=== PATIENT | male | born 1965 | race Caucasian/White ===

== ENCOUNTER 2021-05-21 12:56 | Inpatient (IN) | payer OTHER, SELFPAY ==
[2021-05-21] VITALS (15 sets, daily range): BP systolic 103–151; BP diastolic 57–82; PULSE 85–105; RESP 21–33; TEMP 36.2–36.8; O2SAT 92–99; BMI 28.1; BMI 26.3
--- NOTE | 2021-05-21 14:55 | RAD_ITS ---
STUDY: X-RAY CHEST REASON FOR EXAM: Male, 55 years old. sob/covid -- in ed waiting room TECHNIQUE: Single AP portable view of the chest. COMPARISON: None. FINDINGS: EKG electrodes are seen. Mild degree of bibasilar pulmonary infiltrates slightly worse on the left side. There is no demonstrated pleural abnormality. Normal size heart. Normal mediastinum and elma. Normal visualized pulmonary arteries. Normal visualized aortic arch and descending thoracic aorta. Normal visualized thoracic spine. Normal visualized ribs, clavicles, and shoulders. There is no demonstrated abnormality of the visualized soft tissue structures of the upper abdomen. RAD/Chest 1 View (Portable) IMPRESSION: Mild degree of bilateral basilar infiltrates worse at the left lung base. Electronically Signed: Jose David Valdez MD at 15:15 EDT , Service support ,
--- NOTE | 2021-05-21 15:26 | EKG12_ITS ---
Test Reason : SOB Blood Pressure : / mmHG Vent. Rate : 085 BPM Atrial Rate : 085 BPM P-R Int : 154 ms QRS Dur : 084 ms QT Int : 346 ms P-R-T Axes : 066 -01 060 degrees QTc Int : 411 ms Normal sinus rhythm Poor R wave progression Confirmed by OLIVA ABBOTT, SOFIA ([id number]), slot editor BLAINE BANDA ([id number]) on 05/23/2021 11:25:40 AM Referred By: KAVITHA Confirmed By:SOFIA BAPTISTE MD
--- NOTE | 2021-05-21 15:58 | EDS_ITS ---
HPI History of Present Illness Chief Complaint: Shortness of Breath Informant: patient Onset/Context/Timing Onset: Weeks (1) Context: gradual Timing: Continuous Worsened by: - (Drinking water and drinking coffee) Relieved by: Nothing Associated Symptoms cough; Negative for rhinorrhea, ear pain, fever, sore throat, subjective, chil ls, sweats, clear sputum, white sputum, yellow sputum or green sputum Chest Pain: Positive for None Narrative Narrative: Patient with shortness of breath that has been getting worse over the past week. Patient admits to a cough but denies any sputum production. Patient states his breathing is worse after he drinks water or coffee. Patient states nothing seems to be helping with his breathing. Patient denies any fevers or chills. Patient apparently had a positive COVID-19 test 1 week ago. Patient states he is unable to return to work if he has a positive Covid test. [facility] Medical History (Updated 05/21/21 @ 17:[address] Kiel Diego DO) Diabetes Hyperlipidemia Hypertension Home Medications albuterol sulfate 1 - 2 puff INHALATION Q4H PRN 05/21/21 [History Last Taken Unknown] lisinopril 10 mg PO DAILY 05/21/21 [History Last Taken Unknown] metformin 1,000 mg PO BID 05/21/21 [History Last Taken Unknown] pravastatin 20 mg PO DAILY 05/21/21 [History Last Taken Unknown] prednisone See Taper PO DAILY 05/21/21 [History Last Taken Unknown] Allergy/AdvReac Type Severity Reaction Status Date / Time No Known Allergies Allergy Verified 05/21/21 13:00 Surgical History (Updated 05/21/21 @ 16:[address] Kiel Diego DO) Hx of knee surgery Social History Smoking Status: Never smoker ROS ROS ED Constitutional Constitutional ED: Denies chills or fever(s) Eyes Eyes: Denies blurry vision or change in vision ENT ENT ED: Denies rhinorrhea or sore throat Cardiovascular Cardiovascular: Denies chest pain or palpitations Respiratory/Chest Respiratory/Chest: Reports cough and dyspnea Gastrointestinal Gastrointestinal: Denies nausea or vomiting Genitourinary Genitourinary ED: Denies dysuria or hematuria Musculoskeletal Musculoskeletal: Denies back pain or neck pain Integumentary Denies abscess or rash Neurologic Neurologic: Denies headache(s) or weakness Allergic/Immunologic Allergic/Immunologic ED: Denies mouth swelling or urticaria EXAM Physical Exam Const Vital Signs: 05/21/21 12:57 05/21/21 14:54 05/21/21 15:27 Temperature 97.2 F L Temperature Source Temporal Pulse Rate 96 95 Respiratory Rate 24 H 29 H 32 H Respiratory Effort Short of Breath Respiratory Pattern Tachypnea Blood Pressure 145/68 H 144/82 H Blood Pressure Mean 93 102 Pulse Ox 94 94 98 Oxygen Delivery Method Room Air Room Air Room Air 05/21/21 15:35 05/21/21 16:28 Temperature Temperature Source Pulse Rate 85 105 H Respiratory Rate 33 H 30 H Respiratory Effort Respiratory Pattern Blood Pressure 133/76 H 129/80 H Blood Pressure Mean 95 96 Pulse Ox 95 97 Oxygen Delivery Method Room Air Room Air Positive well nourished and well developed General Appearance ED: well developed HEENT Reports moist mucous membranes Neck supple and no JVD Resp normal respiratory effort Auscultation: diminished lung sounds diffuse Cardio regular rate, regular rhythm and no murmurs GI normal to inspection, nondistended, normoactive bowel sounds and non-tender Palpation: soft Extremity normal to inspection General Extremety ED: Negative for edema or tenderness General Extremity: Negative for edema Neuro oriented x3, CN's II-XII intact bilaterally and no sensory deficits noted Sensorium / Orientation: alert Motor Exam: strength 5/5 throughout Psych mental status grossly normal Skin no rashes or lesions noted MDM MDM MDM Narrative Medical decision making narrative: Patient was given IV fluids here. Patient was given 6 puffs of an albuterol inhaler. Patient was given Tylenol. EKG was obtained. On my interpretation, it showed a normal sinus rhythm with a rate of 85. IA interval, QRS interval, and QTc intervals were all normal. [place] was normal. There are no acute ST or T wave changes. Portable chest x-ray was obtained. There is 1 view. On my interpretation, there are bibasilar infiltrates, worse on the left. There is no cardiomegaly. Bony thorax is normal. Radiologist also interpreted the x-ray and agrees. CBC shows a mild leukocytosis of 12.2. Comprehensive metabolic profile shows a sodium of 129, potassium of 5.9, chloride 91, CO2 of 13, anion gap of 25, BUN of 46, and creatinine of 1.44. There are no prior results for comparison. Glucose was elevated at 555. Lactate was slightly elevated at 2.1. There are moderate ketones. Patient was started on insulin drip here. Case was discussed with the hospitalist. She will admit the patient to ICU. Patient understood and was agreeable with the plan. All questions were answered. Lab Data Attestation: I reviewed the patient's lab results. Labs: Laboratory Results - last 24 hr 05/21/21 05/21/21 05/21/21 15:20 15:20 15:20 WBC 12.2 H RBC 4.54 L Hgb 12.6 L Hct 37.6 L MCV 82.8 MCH 27.8 MCHC 33.5 RDW Std Deviation 41.2 RDW Coeff of Josue 13.7 Plt Count 313 MPV 10.6 Immature Gran % (Auto) 1.500 H Neut % (Auto) 79.5 H Lymph % (Auto) 9.9 L [place] % (Auto) 8.9 Eos % (Auto) 0.0 Baso % (Auto) 0.2 Absolute Neuts (auto) 9.7 H Absolute Lymphs (auto) 1.21 Nucleated RBC % 0 Differential Comment SCANNED Sodium 129 L Potassium 5.9 H Chloride 91 L Carbon Dioxide 13.0 L Anion Gap 25 H BUN 46 H Creatinine 1.44 H Estim Creat Clear Calc 56.74 Est GFR (MDRD) Af Amer 66 Est GFR (MDRD) Non-Af 54 L BUN/Creatinine Ratio 31.9 H Glucose 555 H* Lactic Acid 2.1 H* Calcium 10.7 H Total Bilirubin 0.80 AST 18 ALT 26 Alkaline Phosphatase 75 Troponin I High Sens 6 Total Protein 8.7 H Albumin 3.2 Globulin 5.5 H Albumin/Globulin Ratio 0.6 L Acetone Level 05/21/21 15:20 WBC RBC Hgb Hct MCV MCH MCHC RDW Std Deviation RDW Coeff of Josue Plt Count MPV Immature Gran % (Auto) Neut % (Auto) Lymph % (Auto) [place] % (Auto) Eos % (Auto) Baso % (Auto) Absolute Neuts (auto) Absolute Lymphs (auto) Nucleated RBC % Differential Comment Sodium Potassium Chloride Carbon Dioxide Anion Gap BUN Creatinine Estim Creat Clear Calc Est GFR (MDRD) Af Amer Est GFR (MDRD) Non-Af BUN/Creatinine Ratio Glucose Lactic Acid Calcium Total Bilirubin AST ALT Alkaline Phosphatase Troponin I High Sens Total Protein Albumin Globulin Albumin/Globulin Ratio Acetone Level MODERATE H Radiography Chest X-Ray - ED: 1 View, Read by ED Physician, Read by Radiologist, Right Infiltrate and Left Infiltrate Diagnostic Testing: Radiology Impression Chest X-Ray 05/21/21 14:55 IMPRESSION: Mild degree of bilateral basilar infiltrates worse at the left lung base. Electronically Signed: Jose David Valdez MD at 15:15 EDT , Service support , EKG Initial EKG: Attestation: I personally reviewed and interpreted this EKG as follows: Interpretation: Sinus Rhythm (85) and No Acute Injury Pattern Prior EKG tracings: not available for review Treatment and Re-Evaluation Vital Sign Attestation:: Vital signs were reviewed prior to admission. Patient still has a tachypnea. Remaining vital signs are stable. Discharge Plan Triage Chief Complaint: Shortness of Breath ED Provider: Kiel Diego Dx/Rx/DC Orders Clinical Impression: Diabetic ketoacidosis, Pneumonia due to COVID-19 virus Prescriptions: No Action prednisone 10 mg tablet See Taper mg PO DAILY RF: 0 lisinopril 10 mg tablet 10 mg PO DAILY RF: 0 pravastatin 20 mg tablet 20 mg PO DAILY RF: 0 albuterol sulfate 90 mcg/actuation HFA aerosol inhaler 1 - 2 puff INHALATION Q4H PRN (Reason: sob) RF: 0 metformin 500 mg tablet extended release 24 hr 1,000 mg PO BID RF: 0 Primary Care Provider: Suresh Ball Referrals: Suresh Ball MD [Primary Care Provider] - Disposition Disposition: Acute Care Hospital [facility]
[2021-05-21] MEDS: Acetaminophen 500 MG Tablet 1000 MG PO (16:06)
[2021-05-21 16:08] LABS: Absolute Lymphocyte Count 1.21 X10^3/uL (0.83-4.51); Absolute Neutrophil Count 9.7 X10^3/uL (2.0-7.7); Basophil# 0.03 X10^3/uL; Basophil% 0.2 % (0-1); Hematocrit 37.6 % (40-54); Hemoglobin 12.6 g/dL (13.0-16.5); Lymphocyte # 1.21 X10^3/ul (0.83-4.51); Lymphocyte % 9.9 % (19-41); Mean Corp Hgb Conc 33.5 g/dL (32-36); Mean Corpuscular Hgb 27.8 pg (27.0-32.0); Mean Corpuscular Volume 82.8 fL (80-94); Mean Platelet Vol. 10.6 fl (6.2-12.0); Monocyte# 1.09 X10^3/uL; Monocyte% 8.9 % (0-10); NRBC Flagged by Analyzer 0 % (0-5); Neutrophil # 9.71 X10^3/uL (2.7-7.7); Neutrophil % 79.5 % (47-70); POSITIVE MORPHOLOGY YES; Platelet Count 313 K/mm3 (150-450); RBC Distribution Width CV 13.7 % (11.6-14.6); RBC Distribution Width SD 41.2 fl (35.1-43.9); Red Blood Count 4.54 M/mm3 (4.6-6.2); White Blood Count 12.2 K/mm3 (4.4-11.0)
[2021-05-21 16:12] LABS: Differential Indicated SCAN CRITERIA MET
[2021-05-21 16:36] LABS: ALB/GLOB Ratio 0.6 RATIO (0.9-2.4); AST(SGOT) 18 U/L (15-37); Alanine Aminotransfer ALT/SGPT 26 U/L (16-61); Albumin, Serum 3.2 g/dL (3.2-5.0); Alkaline Phosphatase 75 U/L (45-117); Anion Gap 25 (5-15); BUN 46 mg/dL (7-18); BUN/Creat Ratio 31.9 RATIO (10-20); Calcium,Total 10.7 mg/dL (8.5-10.1); Chloride 91 mmol/L (98-107); Creatinine, Serum 1.44 mg/dL (0.70-1.30); EST Glomerular Filtration Rate 54 mL/min (>60); Est Glom Filt Rate - Afr Amer 66 mL/min (>60); Estimated Creatinine Clearance 56.74 ml/min; Globulin 5.5 g/dL (2.2-4.2); Glucose 555 mg/dL (74-106); Potassium 5.9 mmol/L (3.5-5.1); Protein, Total 8.7 g/dL (6.4-8.2); Sodium Level 129 mmol/L (136-145); Troponin-I HS 6 pg/mL (3.0-78.0)
[2021-05-21 16:37] LABS: Lactic Acid 2.1 mmol/L (0.4-1.9)
[2021-05-21 16:40] LABS: Differential Comment SCANNED
--- NOTE | 2021-05-21 17:33 | PCM.HP.STD ---
HPI - General General Date of Admission: 05/21/21 Date of Service: 05/21/21 Chief Complaint: Generalized weakness HPI Narrative KARLY CAN, is a 55 M who presents with progressive shortness of breath and weakness. Patient is a poor historian. His is also admitted. His gives a history of having 10 days of symptoms with progressive shortness of breath. There were tested in the [facility] about a week ago and was positive. He had been using [id number] medications with no improvement. Patient complains of having generalized aches. He denies any fever or chills. He has not been able to eat or drink well. Denies any diarrhea. His states that in the last few days he has been confused. He does not answer questions appropriately He is a diabetic on Metformin and lisinopril. Vitals in the ED were stable. He was not requiring oxygen. [facility] Medical History Diabetes Hyperlipidemia Hypertension Home Medications albuterol sulfate 1 - 2 puff INHALATION Q4H PRN 05/21/21 [History Last Taken Unknown] lisinopril 10 mg PO DAILY 05/21/21 [History Last Taken Unknown] metformin 1,000 mg PO BID 05/21/21 [History Last Taken Unknown] pravastatin 20 mg PO DAILY 05/21/21 [History Last Taken Unknown] prednisone See Taper PO DAILY 05/21/21 [History Last Taken Unknown] Allergy/AdvReac Type Severity Reaction Status Date / Time No Known Allergies Allergy Verified 05/21/21 13:00 Family History unable to obtain Surgical History (Updated 05/21/21 @ 16:[address] Kiel Diego, DO) Hx of knee surgery Social History (Updated 05/21/21 @ 18:[address] Nneka Quintero MD) household members: spouse Smoking Status: Never smoker alcohol intake: never substance use type: does not use ROS Review of Systems ROS Unobtainable: other Details: Patient is a poor historian Vital Signs Vital Signs Vital Signs: 05/21/21 12:57 05/21/21 14:54 05/21/21 15:27 Temperature 97.2 F L Temperature Source Temporal Pulse Rate 96 95 Respiratory Rate 24 H 29 H 32 H Respiratory Effort Short of Breath Respiratory Pattern Tachypnea Blood Pressure 145/68 H 144/82 H Blood Pressure Mean 93 102 Pulse Ox 94 94 98 Oxygen Delivery Method Room Air Room Air Room Air 05/21/21 15:35 05/21/21 16:28 Temperature Temperature Source Pulse Rate 85 105 H Respiratory Rate 33 H 30 H Respiratory Effort Respiratory Pattern Blood Pressure 133/76 H 129/80 H Blood Pressure Mean 95 96 Pulse Ox 95 97 Oxygen Delivery Method Room Air Room Air Weight Weight: 83.915 kg Body Mass Index (BMI) 28.1 Physical Exam Narrative Physical exam: General: Alert, appears confused, No apparent distress, appears very unwell, unkempt HEENT: Atraumatic Oral: Dry oral mucosa, whitish furred tongue Neck: Supple Lungs: Clear to auscultation Cardiovascular: HS I+II, regular, no murmurs Abdomen: Bowel Sounds Present, Soft, Non Tender Extremities: No edema Results Lab / Micro Data Result Diagrams: 05/21/21 15:20 05/21/21 18:20 Labs: Laboratory Results - last 24 hr 05/21/21 15:20: WBC 12.2 H, RBC 4.54 L, Hgb 12.6 L, Hct 37.6 L, MCV 82.8, MCH 27.8, MCHC 33.5, RDW Std Deviation 41.2, RDW Coeff of Josue 13.7, Plt Count 313, MPV 10.6, Immature Gran % (Auto) 1.500 H, Neut % (Auto) 79.5 H, Lymph % (Auto) 9.9 L, [place] % (Auto) 8.9, Eos % (Auto) 0.0, Baso % (Auto) 0.2, Absolute Neuts (auto) 9.7 H, Absolute Lymphs (auto) 1.21, Nucleated RBC % 0, Differential Comment SCANNED 05/21/21 15:20: Sodium 129 L, Potassium 5.9 H, Chloride 91 L, Carbon Dioxide 13.0 L, Anion Gap 25 H, BUN 46 H, Creatinine 1.44 H, Estim Creat Clear Calc 56.74, Est GFR (MDRD) Af Amer 66, Est GFR (MDRD) Non-Af 54 L, BUN/Creatinine Ratio 31.9 H, Glucose 555 H*, Calcium 10.7 H, Total Bilirubin 0.80, AST 18, ALT 26, Alkaline Phosphatase 75, Troponin I High Sens 6, Total Protein 8.7 H, Albumin 3.2, Globulin 5.5 H, Albumin/Globulin Ratio 0.6 L 05/21/21 15:20: Lactic Acid 2.1 H* 05/21/21 15:20: Acetone Level MODERATE H Radiology Impression Chest X-Ray 05/21/21 14:55 IMPRESSION: Mild degree of bilateral basilar infiltrates worse at the left lung base. Electronically Signed: Jose David Valdez MD at 15:15 EDT , Service support , Assessment & Plan Assessment/Plan (1) Diabetic ketoacidosis: QUALIFIERS: Diabetes mellitus complication detail: without coma Diabetes mellitus type: type 2 Qualified Code(s): E11.10 - Type 2 diabetes mellitus with ketoacidosis without coma (2) Pneumonia due to COVID-19 virus: (3) Leucocytosis: QUALIFIERS: Leukocytosis type: unspecified Qualified Code(s): D72.829 - Elevated white blood cell count, unspecified (4) Hyponatremia: (5) Hyperkalemia: (6) CKD (chronic kidney disease): QUALIFIERS: Chronic kidney disease stage: unspecified stage Qualified Code(s): N18.9 - Chronic kidney disease, unspecified (7) Lactic acidosis: PLAN: 1. Acute DKA, in a known type II diabetic patient HbA1c is 12.3 Patient's admitting blood sugar was 555, anion gap is 25 Will admit to ICU, continue acute DKA protocol Hold patient's Metformin 2. Hyperkalemia, admitting potassium was 5.9, repeat potassium 6.1 We will treat with Kayexalate, continue to monitor on insulin drip 3. Acute COVID-19 pneumonia without oxygen Hold off on dexamethasone Will continue to monitor, encourage use of incentive spirometer 4. NOREEN versus CKD, unclear stage, secondary to #1 Hold lisinopril and Metformin Will continue aggressive IV fluids, trend BMP 5. Lactic acidosis, secondary to #1 vs probable hypoxia Will trend 6. Hypertension, controlled, hold home lisinopril Hydralazine as needed if needed 7. Acute metabolic encephalopathy, new according to his Ongoing for the past few days We will continue to monitor I discussed and explained in details the various types of CODE STATUS-full code, DNR CCA, DNR CC. Discussed with his ; stated that patient would want to be full code in the event of a cardiopulmonary arrest. Time spent discussing CODE STATUS 16 minutes Charges/Coding Visit Charges Inpatient E&M: 83958 Init Hosp L3 Procedures Hospitalists Procedures: [id number] Advncd Care Plan 30 Min
--- NOTE | 2021-05-21 17:35 | NURSING ---
ICU 4 NAUMAH DKA, COVID 19
[2021-05-21] MEDS: 0.9% Normal Saline 1,000 ML 999 ML IV (18:16)
[2021-05-21 18:52] LABS: Anion Gap 31 (5-15); BUN 46 mg/dL (7-18); BUN/Creat Ratio 31.1 RATIO (10-20); Calcium,Total 10.2 mg/dL (8.5-10.1); Chloride 89 mmol/L (98-107); Creatinine, Serum 1.48 mg/dL (0.70-1.30); EST Glomerular Filtration Rate 53 mL/min (>60); Est Glom Filt Rate - Afr Amer 64 mL/min (>60); Estimated Creatinine Clearance 57.06 ml/min; Glucose 583 mg/dL (74-106); Potassium 6.1 mmol/L (3.5-5.1); Sodium Level 130 mmol/L (136-145)
[2021-05-21 19:13] LABS: Hemoglobin A1c 12.3 % (3.8-5.6)
[2021-05-21] MEDS: 0.9% Normal Saline 1,000 ML 250 ML IV (19:29)
[2021-05-21 20:05] LABS: Reflex Lactate? Y
[2021-05-21] MEDS: Pravastatin 20 MG Tablet PO (21:12)
[2021-05-21] MEDS: Sodium Polystyrene Sulfonate 15 GM/60 ML UDC 30 GM PO (21:12)
[2021-05-21 21:17] LABS: Lactic Acid 2.4 mmol/L (0.4-1.9)
[2021-05-21 22:48] LABS: Anion Gap 16 (5-15); BUN 39 mg/dL (7-18); BUN/Creat Ratio 29.3 RATIO (10-20); Calcium,Total 9.5 mg/dL (8.5-10.1); Chloride 102 mmol/L (98-107); Creatinine, Serum 1.33 mg/dL (0.70-1.30); EST Glomerular Filtration Rate 59 mL/min (>60); Est Glom Filt Rate - Afr Amer 72 mL/min (>60); Estimated Creatinine Clearance 63.49 ml/min; Glucose 389 mg/dL (74-106); Potassium 4.6 mmol/L (3.5-5.1); Sodium Level 136 mmol/L (136-145)
[2021-05-21] MEDS: 0.9% Normal Saline 1,000 ML 125 ML IV (23:34)
[2021-05-22] VITALS (20 sets, daily range): BP systolic 115–153; BP diastolic 47–93; PULSE 32–108; RESP 17–30; TEMP 36.2–36.7; O2SAT 92–98
[2021-05-22] MEDS: Dext 5%-0.45% NS 1,000 ML 150 ML IV (02:35)
[2021-05-22 04:27] LABS: Bedside Glucose 407 mg/dL (70-110)
[2021-05-22 04:27] LABS: Bedside Glucose 436 mg/dL (70-110)
[2021-05-22 04:27] LABS: Bedside Glucose 260 mg/dL (70-110)
[2021-05-22 04:27] LABS: Bedside Glucose 491 mg/dL (70-110)
[2021-05-22 04:27] LABS: Bedside Glucose 350 mg/dL (70-110)
[2021-05-22 04:27] LABS: Bedside Glucose 435 mg/dL (70-110)
[2021-05-22 04:27] LABS: Bedside Glucose > 500 mg/dL (70-110)
[2021-05-22 06:12] LABS: ALB/GLOB Ratio 0.6 RATIO (0.9-2.4); AST(SGOT) 15 U/L (15-37); Alanine Aminotransfer ALT/SGPT 20 U/L (16-61); Albumin, Serum 2.6 g/dL (3.2-5.0); Alkaline Phosphatase 61 U/L (45-117); Anion Gap 11 (5-15); BUN 27 mg/dL (7-18); BUN/Creat Ratio 23.3 RATIO (10-20); Calcium,Total 9.1 mg/dL (8.5-10.1); Chloride 105 mmol/L (98-107); Creatinine, Serum 1.16 mg/dL (0.70-1.30); EST Glomerular Filtration Rate 70 mL/min (>60); Est Glom Filt Rate - Afr Amer 84 mL/min (>60); Globulin 4.5 g/dL (2.2-4.2); Glucose 430 mg/dL (74-106); Potassium 3.8 mmol/L (3.5-5.1); Protein, Total 7.1 g/dL (6.4-8.2); Sodium Level 137 mmol/L (136-145)
[2021-05-22 06:23] LABS: Absolute Lymphocyte Count 1.04 X10^3/uL (0.83-4.51); Absolute Neutrophil Count 7.8 X10^3/uL (2.0-7.7); Basophil# 0.03 X10^3/uL; Basophil% 0.3 % (0-1); Eosinophil# 0.02 X10^3/uL; Eosinophils% 0.2 % (0-5); Hematocrit 33.5 % (40-54); Hemoglobin 11.5 g/dL (13.0-16.5); Lymphocyte # 1.04 X10^3/ul (0.83-4.51); Lymphocyte % 10.7 % (19-41); Mean Corp Hgb Conc 34.3 g/dL (32-36); Mean Corpuscular Hgb 27.9 pg (27.0-32.0); Mean Corpuscular Volume 81.3 fL (80-94); Mean Platelet Vol. 10.3 fl (6.2-12.0); Monocyte# 0.68 X10^3/uL; NRBC Flagged by Analyzer 0 % (0-5); Neutrophil # 7.76 X10^3/uL (2.7-7.7); Neutrophil % 80.3 % (47-70); Platelet Count 224 K/mm3 (150-450); RBC Distribution Width CV 13.5 % (11.6-14.6); RBC Distribution Width SD 40.2 fl (35.1-43.9); Red Blood Count 4.12 M/mm3 (4.6-6.2); White Blood Count 9.7 K/mm3 (4.4-11.0)
--- NOTE | 2021-05-22 07:58 | EX.PCM.CONCC ---
Assessment & Plan Assessment/Plan (1) Diabetic ketoacidosis: QUALIFIERS: Diabetes mellitus type: type 2 Diabetes mellitus complication detail: without coma Qualified Code(s): E11.10 - Type 2 diabetes mellitus with ketoacidosis without coma (2) Pneumonia due to COVID-19 virus: (3) CKD (chronic kidney disease): QUALIFIERS: Chronic kidney disease stage: unspecified stage Qualified Code(s): N18.9 - Chronic kidney disease, unspecified PLAN: RECOMMENDATIONS: 1. Avoid further fluid boluses 2. Transition from insulin drip to subcutaneous insulin 3. Diabetic training 4. Walking oximetry prior to discharge 5. Repeat chest x-ray 6. Okay to reinitiate baseline medications 7. Okay to leave the intensive care unit from my perspective IMPRESSIONS: 1. Acute DKA in the setting of poorly controlled diabetes mellitus Patient was treated with prednisone recently secondary to COVID-19 diagnosis. However, hemoglobin A1c is elevated at 12.3 indicating poorly controlled diabetes for more than just this acute burst. Will transition patient to subcutaneous insulin. Patient will likely require diabetic training. Patient did receive fluid boluses associated with DKA, but would hold on further boluses as this can worsen his COVID-19 hypoxia. Likely would discontinue Metformin at this time. 2. Acute hypoxic respiratory insufficiency secondary to COVID-19 Patient with significant worsening in his oxygen status over the course of this hospitalization. Clinical suspicion the patient was dehydrated leading to good saturations on presentation. Patient has received fluid resuscitation secondary to problem #1. Will repeat chest x-ray. Anticipate significant worsening. Patient will need a walking oximetry prior to discharge. Cannot exclude the need for supplemental oxygen while he recovers from COVID-19. If patient does require supplemental oxygen, he can follow-up in our office or with PCP for discontinuation. 3. Acute kidney injury Renal function has normalized with aggressive fluid resuscitation. No indication for renal replacement therapy. 4. Hypertension/metabolic encephalopathy Complicates care, management, recovery and prognosis. Unclear if encephalopathy secondary to DKA or potential hypoxia. Recommend delirium protocol. Okay to reinitiate baseline antihypertensive medications. HPI Consult Data Date of Consult: 05/22/21 HPI Narrative HPI Narrative: KARLY CAN is a 55 M, with past medical history listed below, who presents to [facility] on 05/21/2021 secondary to shortness of breath, nonproductive cough and nausea. Patient reportedly had been diagnosed with COVID-19 a week ago and was placed on steroid therapy. Patient does have a history of diabetes, but is never required insulin previously. On presentation to the ER, patient was afebrile, but tachypneic and hypertensive. Patient was saturating well on room air. Patient was given albuterol and a fluid bolus. Chest x-ray showed bibasilar infiltrates, left greater than right. Laboratory work-up showed a leukocytosis of 12.2, hemoglobin of 12.6 and a potassium of 5.9. Patient had a creatinine of 1.44 and a glucose of 555. Liver function studies were within normal limits. Patient had a moderate acetone level. Patient's findings were consistent with DKA, so he was started on insulin drip and admitted to the intensive care unit for further evaluation. Since being in the intensive care unit, patient has done okay. Patient did receive two additional liters of IV fluids. Patient states that he feels subjectively slightly improved compared to previous. Nursing had reported some concern for worsening confusion over the course of the day. Patient denies any dyspnea, but saturations have dropped from 97% on room air down to 91% with activity. Patient is a relatively poor historian, but otherwise review of systems otherwise negative from a constitutional, HEENT, respiratory, cardiovascular, GI, genitourinary, musculoskeletal, skin, neurologic, psychiatric and hematologic system unless stated above. [facility] Medical History Diabetes Hyperlipidemia Hypertension Home Medications albuterol sulfate 1 - 2 puff INHALATION Q4H PRN 05/21/21 [History Last Taken Unknown] lisinopril 10 mg PO DAILY 05/21/21 [History Last Taken Unknown] metformin 1,000 mg PO BID 05/21/21 [History Last Taken Unknown] pravastatin 20 mg PO DAILY 05/21/21 [History Last Taken Unknown] prednisone See Taper PO DAILY 05/21/21 [History Last Taken Unknown] Allergy/AdvReac Type Severity Reaction Status Date / Time No Known Allergies Allergy Verified 05/21/21 13:00 Family History unable to obtain Surgical History (Updated 05/21/21 @ 16:[address] Kiel Diego DO) Hx of knee surgery Social History (Updated 05/21/21 @ 18:[address] Nneka Quintero MD) household members: spouse Smoking Status: Never smoker alcohol intake: never substance use type: does not use ROS ROS Narrative See HPI Physical Exam Const alert and no apparent distress General Appearance: cooperative and disheveled; Negative for ill appearing HEENT normocephalic, head/scalp atraumatic and moist oral mucous membranes Eyes PERRL and EOMs intact bilaterally Neck full ROM and no lymphadenopathy Chest inspection of chest normal Resp normal respiratory effort and no use of accessory muscles Effort and Inspection: able to speak in complete sentences Auscultation: clear to auscultation bilaterally; Negative for rales, rhonchi or wheezes Percussion: Negative for dullness Cardio regular rate, regular rhythm, S1 normal heart sound, S2 normal heart sound, no murmurs, no rub and no gallops GI normal to inspection, nondistended, normoactive bowel sounds no CVA tenderness Extremity no clubbing, cyanosis or edema Skin no rashes or lesions noted Neuro oriented x3, CN's II-XII intact bilaterally, moves all extremities and no focal motor deficits Psych cooperative and affect normal Lab / Micro Data Result Diagrams: 05/22/21 05:10 05/22/21 05:10 Labs: Laboratory Results - last 24 hr 05/21/21 15:20: WBC 12.2 H, RBC 4.54 L, Hgb 12.6 L, Hct 37.6 L, MCV 82.8, MCH 27.8, MCHC 33.5, RDW Std Deviation 41.2, RDW Coeff of Josue 13.7, Plt Count 313, MPV 10.6, Immature Gran % (Auto) 1.500 H, Neut % (Auto) 79.5 H, Lymph % (Auto) 9.9 L, [place] % (Auto) 8.9, Eos % (Auto) 0.0, Baso % (Auto) 0.2, Absolute Neuts (auto) 9.7 H, Absolute Lymphs (auto) 1.21, Nucleated RBC % 0, Differential Comment SCANNED 05/21/21 15:20: Sodium 129 L, Potassium 5.9 H, Chloride 91 L, Carbon Dioxide 13.0 L, Anion Gap 25 H, BUN 46 H, Creatinine 1.44 H, Estim Creat Clear Calc 56.74, Est GFR (MDRD) Af Amer 66, Est GFR (MDRD) Non-Af 54 L, BUN/Creatinine Ratio 31.9 H, Glucose 555 H*, Calcium 10.7 H, Total Bilirubin 0.80, AST 18, ALT 26, Alkaline Phosphatase 75, Troponin I High Sens 6, Total Protein 8.7 H, Albumin 3.2, Globulin 5.5 H, Albumin/Globulin Ratio 0.6 L 05/21/21 15:20: Lactic Acid 2.1 H* 05/21/21 15:20: Acetone Level MODERATE H 05/21/21 18:06: POC Glucose > 500 H* 05/21/21 18:20: Hemoglobin A1c 12.3 H 05/21/21 18:20: Sodium 130 L, Potassium 6.1 H*, Chloride 89 L, Carbon Dioxide 10.0 L, Anion Gap 31 H, BUN 46 H, Creatinine 1.48 H, Estim Creat Clear Calc 57.06, Est GFR (MDRD) Af Amer 64, Est GFR (MDRD) Non-Af 53 L, BUN/Creatinine Ratio 31.1 H, Glucose 583 H*, Calcium 10.2 H 05/21/21 19:22: POC Glucose 491 H* 05/21/21 20:18: POC Glucose 435 H 05/21/21 20:30: Lactic Acid 2.4 H* 05/21/21 21:16: POC Glucose 436 H 05/21/21 22:00: Sodium 136, Potassium 4.6, Chloride 102, Carbon Dioxide 18.0 L, Anion Gap 16 H, BUN 39 H, Creatinine 1.33 H, Estim Creat Clear Calc 63.49, Est GFR (MDRD) Af Amer 72, Est GFR (MDRD) Non-Af 59 L, BUN/Creatinine Ratio 29.3 H, Glucose 389 H, Calcium 9.5 05/21/21 22:13: POC Glucose 407 H 05/21/21 23:13: POC Glucose 350 H 05/22/21 01:21: POC Glucose 260 H 05/22/21 05:10: WBC 9.7, RBC 4.12 L, Hgb 11.5 L, Hct 33.5 L, MCV 81.3, MCH 27.9, MCHC 34.3, RDW Std Deviation 40.2, RDW Coeff of Josue 13.5, Plt Count 224, MPV 10.3, Immature Gran % (Auto) 1.500 H, Neut % (Auto) 80.3 H, Lymph % (Auto) 10.7 L, [place] % (Auto) 7.0, Eos % (Auto) 0.2, Baso % (Auto) 0.3, Absolute Neuts (auto) 7.8 H, Absolute Lymphs (auto) 1.04, Nucleated RBC % 0 05/22/21 05:10: Sodium 137, Potassium 3.8, Chloride 105, Carbon Dioxide 21.0, Anion Gap 11, BUN 27 H, Creatinine 1.16, Estim Creat Clear Calc 72.80, Est GFR (MDRD) Af Amer 84, Est GFR (MDRD) Non-Af 70, BUN/Creatinine Ratio 23.3 H, Glucose 430 H, Calcium 9.1, Total Bilirubin 0.50, AST 15, ALT 20, Alkaline Phosphatase 61, Total Protein 7.1, Albumin 2.6 L, Globulin 4.5 H, Albumin/Globulin Ratio 0.6 L Micro: Microbiology 05/21/21 17:40 Nasal Secretion SARS-CoV-2 Antigen (Rapid) - Final SARS-CoV-2 (COVID 19) Radiology Impression Chest X-Ray 05/21/21 14:55 IMPRESSION: Mild degree of bilateral basilar infiltrates worse at the left lung base. Electronically Signed: Jose David Valdez MD at 15:15 EDT , Service support , Charges/Coding Visit Charges Inpatient E&M: 19965 Init Hosp L3
--- NOTE | 2021-05-22 08:10 | RAD_ITS ---
STUDY: X-RAY CHEST REASON FOR EXAM: Male, 55 years old. Worsening oxygenation, COVID TECHNIQUE: Single AP portable view of the chest. COMPARISON: Comparison is made with prior study 05/21/2021. FINDINGS: EKG electrodes are seen. Since prior study, there has been progressive infiltrates in both lung bases. There is no demonstrated pleural abnormality. Normal size heart. Normal mediastinum and elma. Normal visualized pulmonary arteries. Normal visualized aortic arch and descending thoracic aorta. There are diffuse degenerative changes of the visualized thoracic spine. Normal visualized ribs, clavicles, and shoulders. There is no demonstrated abnormality of the visualized soft tissue structures of the upper abdomen. RAD/Chest 1 View (Portable) IMPRESSION: Progressive bibasilar pulmonary infiltrates. Electronically Signed: Jose David Valdez MD at 9:32 EDT , Service support ,
[2021-05-22 09:03] LABS: Anion Gap 10 (5-15); BUN 34 mg/dL (7-18); BUN/Creat Ratio 30.4 RATIO (10-20); Calcium,Total 9.4 mg/dL (8.5-10.1); Chloride 108 mmol/L (98-107); Creatinine, Serum 1.12 mg/dL (0.70-1.30); EST Glomerular Filtration Rate 73 mL/min (>60); Est Glom Filt Rate - Afr Amer 88 mL/min (>60); Glucose 281 mg/dL (74-106); Potassium 4.4 mmol/L (3.5-5.1); Sodium Level 137 mmol/L (136-145)
[2021-05-22 09:04] LABS: Lactic Acid 1.4 mmol/L (0.4-1.9)
[2021-05-22 09:30] LABS: Bedside Glucose 281 mg/dL (70-110)
[2021-05-22 09:30] LABS: Bedside Glucose 293 mg/dL (70-110)
[2021-05-22 09:30] LABS: Bedside Glucose 284 mg/dL (70-110)
[2021-05-22 09:30] LABS: Bedside Glucose 243 mg/dL (70-110)
[2021-05-22 09:30] LABS: Bedside Glucose 279 mg/dL (70-110)
--- NOTE | 2021-05-22 10:03 | PN.HOSP_ITS ---
Subjective Subjective Answers all questions appropriately but does not seem to be processing information very well, nurses have noticed odd behaviors despite answering all of his orientation questions correctly Objective Data Objective Data Vital Signs: Vital Signs Temp Pulse Resp BP Pulse Ox 98.1 F 81 25 H 136/78 H 93 05/22/21 04:00 05/22/21 07:42 05/22/21 06:00 05/22/21 06:00 05/22/21 06:00 Oxygen Delivery Method Room Air Weight: 178 lb 9.191 oz Body Mass Index (BMI) 26.3 Intake & Output: Intake and Output for Last 24 Hours 05/21/21 05/22/21 05/23/21 03:59 03:59 03:59 Intake Total 2421.74 / 2421.74 9. / .05 Output Total 625 / 625 Balance 1796.74 / 1796.74 9. / .05 Lab / Micro Data Result Diagrams: 05/23/21 07:26 05/23/21 07:26 Labs: Laboratory Results - last 24 hr 05/21/21 15:20: WBC 12.2 H, RBC 4.54 L, Hgb 12.6 L, Hct 37.6 L, MCV 82.8, MCH 27.8, MCHC 33.5, RDW Std Deviation 41.2, RDW Coeff of Josue 13.7, Plt Count 313, MPV 10.6, Immature Gran % (Auto) 1.500 H, Neut % (Auto) 79.5 H, Lymph % (Auto) 9.9 L, [place] % (Auto) 8.9, Eos % (Auto) 0.0, Baso % (Auto) 0.2, Absolute Neuts (auto) 9.7 H, Absolute Lymphs (auto) 1.21, Nucleated RBC % 0, Differential Comment SCANNED 05/21/21 15:20: Sodium 129 L, Potassium 5.9 H, Chloride 91 L, Carbon Dioxide 13.0 L, Anion Gap 25 H, BUN 46 H, Creatinine 1.44 H, Estim Creat Clear Calc 56.74, Est GFR (MDRD) Af Amer 66, Est GFR (MDRD) Non-Af 54 L, BUN/Creatinine Ratio 31.9 H, Glucose 555 H*, Calcium 10.7 H, Total Bilirubin 0.80, AST 18, ALT 26, Alkaline Phosphatase 75, Troponin I High Sens 6, Total Protein 8.7 H, Albumin 3.2, Globulin 5.5 H, Albumin/Globulin Ratio 0.6 L 05/21/21 15:20: Lactic Acid 2.1 H* 05/21/21 15:20: Acetone Level MODERATE H 05/21/21 18:06: POC Glucose > 500 H* 05/21/21 18:20: Hemoglobin A1c 12.3 H 05/21/21 18:20: Sodium 130 L, Potassium 6.1 H*, Chloride 89 L, Carbon Dioxide 10.0 L, Anion Gap 31 H, BUN 46 H, Creatinine 1.48 H, Estim Creat Clear Calc 57.06, Est GFR (MDRD) Af Amer 64, Est GFR (MDRD) Non-Af 53 L, BUN/Creatinine Ratio 31.1 H, Glucose 583 H*, Calcium 10.2 H 05/21/21 19:22: POC Glucose 491 H* 05/21/21 20:18: POC Glucose 435 H 05/21/21 20:30: Lactic Acid 2.4 H* 05/21/21 21:16: POC Glucose 436 H 05/21/21 22:00: Sodium 136, Potassium 4.6, Chloride 102, Carbon Dioxide 18.0 L, Anion Gap 16 H, BUN 39 H, Creatinine 1.33 H, Estim Creat Clear Calc 63.49, Est GFR (MDRD) Af Amer 72, Est GFR (MDRD) Non-Af 59 L, BUN/Creatinine Ratio 29.3 H, Glucose 389 H, Calcium 9.5 05/21/21 22:13: POC Glucose 407 H 05/21/21 23:13: POC Glucose 350 H 05/22/21 01:20: Sodium 137, Potassium 4.4, Chloride 108 H, Carbon Dioxide 19.0 L , Anion Gap 10, BUN 34 H, Creatinine 1.12, Estim Creat Clear Calc 75.40, Est GFR (MDRD) Af Amer 88, Est GFR (MDRD) Non-Af 73, BUN/Creatinine Ratio 30.4 H, Gluc ose 281 H, Calcium 9.4 05/22/21 01:20: Lactic Acid 1.4 05/22/21 01:21: POC Glucose 260 H 05/22/21 02:24: POC Glucose 243 H 05/22/21 03:24: POC Glucose 279 H 05/22/21 04:16: POC Glucose 284 H 05/22/21 05:10: WBC 9.7, RBC 4.12 L, Hgb 11.5 L, Hct 33.5 L, MCV 81.3, MCH 27.9, MCHC 34.3, RDW Std Deviation 40.2, RDW Coeff of Josue 13.5, Plt Count 224, MPV 10.3, Immature Gran % (Auto) 1.500 H, Neut % (Auto) 80.3 H, Lymph % (Auto) 10.7 L, [place] % (Auto) 7.0, Eos % (Auto) 0.2, Baso % (Auto) 0.3, Absolute Neuts (auto) 7.8 H, Absolute Lymphs (auto) 1.04, Nucleated RBC % 0 05/22/21 05:10: Sodium 137, Potassium 3.8, Chloride 105, Carbon Dioxide 21.0, Anion Gap 11, BUN 27 H, Creatinine 1.16, Estim Creat Clear Calc 72.80, Est GFR (MDRD) Af Amer 84, Est GFR (MDRD) Non-Af 70, BUN/Creatinine Ratio 23.3 H, Glucose 430 H, Calcium 9.1, Total Bilirubin 0.50, AST 15, ALT 20, Alkaline Phosphatase 61, Total Protein 7.1, Albumin 2.6 L, Globulin 4.5 H, Albumin/Glob ulin Ratio 0.6 L 05/22/21 05:15: POC Glucose 281 H 05/22/21 06:20: POC Glucose 293 H Micro: Microbiology 05/21/21 17:40 Nasal Secretion SARS-CoV-2 Antigen (Rapid) - Final SARS-CoV-2 (COVID 19) Radiography Diagnostic Testing: Radiology Impression Chest X-Ray 05/21/21 14:55 IMPRESSION: Mild degree of bilateral basilar infiltrates worse at the left lung base. Electronically Signed: Jose David Valdez MD at 15:15 EDT , Service support , Chest X-Ray 05/22/21 08:10 IMPRESSION: Progressive bibasilar pulmonary infiltrates. Electronically Signed: Jose David Valdez MD at 9:32 EDT , Service support , Physical Exam Const alert, oriented x3 and no apparent distress General Appearance: cooperative Orientation / Consciousness: confused HEENT normocephalic and moist oral mucous membranes Eyes PERRL, EOMs intact bilaterally and conjunctivae normal Neck supple and no JVD Resp normal respiratory effort, no retractions, no use of accessory muscles and clear to auscultation bilaterally Auscultation: Negative for crackles, rales, rhonchi or wheezes Cardio regular rate, regular rhythm, S1 normal heart sound, S2 normal heart sound and no murmurs GI soft to palpation, non-tender and non-distended; Negative for hepatosplenomegaly Extremity no clubbing, cyanosis or edema Skin no rashes or lesions noted Neuro no focal motor deficits and no sensory deficits noted Psych affect normal Appearance: appropriate Assessment & Plan Assessment/Plan (1) Diabetic ketoacidosis: QUALIFIERS: Diabetes mellitus complication detail: without coma Diabetes mellitus type: type 2 Qualified Code(s): E11.10 - Type 2 diabetes mellitus with ketoacidosis without coma (2) Pneumonia due to COVID-19 virus: (3) Leucocytosis: QUALIFIERS: Leukocytosis type: unspecified Qualified Code(s): D72.829 - Elevated white blood cell count, unspecified (4) Hyponatremia: (5) Hyperkalemia: (6) CKD (chronic kidney disease): QUALIFIERS: Chronic kidney disease stage: unspecified stage Qual ified Code(s): N18.9 - Chronic kidney disease, unspecified (7) Lactic acidosis: PLAN: 1. DKA in DM2 with hyperkalemia/NOREEN/metabolic encephalopathy -DKA has resolved with appropriate fluid resuscitation as well as an insulin drip -We will place him on subcu insulin and monitor and make adjustments as necessary -Appreciate pulmonology assistance -A1c was elevated to 12.3 -Renal function is back to normal with resuscitation 2. COVID-19 pneumonia -Not requiring oxygen though his oxygen sats did decrease with appropriate resuscitation because of his DKA -We will continue to hold off on Decadron as well as remdesivir especially in the setting of his hyperglycemia 3. HTN -Blood pressure stable, will hold his home blood pressure medications -May restart lisinopril once creatinine remains normal in the morning DVT: Lovenox Charges/Coding Visit Charges Inpatient E&M: 96625 Subs Hosp L2
[2021-05-22] MEDS: Insulin Lispro 100 UNIT/ML INSULN.PEN SC ×3 (10:59→22:15)
[2021-05-22] MEDS: Insulin Lispro 100 UNIT/ML INSULN.PEN 10 UNIT SC ×2 (11:00→18:28)
[2021-05-22 11:30] LABS: Bedside Glucose 263 mg/dL (70-110)
--- NOTE | 2021-05-22 11:49 | NURSING ---
report called to [facility] for transfer to room 125
--- NOTE | 2021-05-22 12:00 | CASEMGMT ---
RN CM assessment deferred at this time. Patient is alert to person only and not able to participate in assessment. CM will attempt again at later time when patient is more alert. Patient's is currently hospitalized for Covid on PCU. Will monitor and plan for safe discharge.
[2021-05-22 13:11] LABS: Bedside Glucose 325 mg/dL (70-110)
[2021-05-22 17:16] LABS: Bedside Glucose 303 mg/dL (70-110)
[2021-05-22] MEDS: Pravastatin 20 MG Tablet PO (22:15)
[2021-05-22] MEDS: Enoxaparin 30 MG/0.3 ML Syringe SC (22:15)
[2021-05-22 22:35] LABS: Bedside Glucose 257 mg/dL (70-110)
[2021-05-23] VITALS (11 sets, daily range): BP systolic 123–147; BP diastolic 68–80; PULSE 90–121; RESP 15–18; TEMP 36.3–37.8; O2SAT 94–98
[2021-05-23 07:36] LABS: Absolute Lymphocyte Count 0.75 X10^3/uL (0.83-4.51); Absolute Neutrophil Count 5.9 X10^3/uL (2.0-7.7); Basophil# 0.02 X10^3/uL; Basophil% 0.3 % (0-1); Eosinophil# 0.03 X10^3/uL; Eosinophils% 0.4 % (0-5); Hematocrit 32.9 % (40-54); Hemoglobin 11.2 g/dL (13.0-16.5); Lymphocyte # 0.75 X10^3/ul (0.83-4.51); Lymphocyte % 9.9 % (19-41); Mean Corpuscular Hgb 27.9 pg (27.0-32.0); Mean Corpuscular Volume 81.8 fL (80-94); Mean Platelet Vol. 10.1 fl (6.2-12.0); Monocyte# 0.67 X10^3/uL; Monocyte% 8.9 % (0-10); NRBC Flagged by Analyzer 0 % (0-5); Neutrophil # 5.93 X10^3/uL (2.7-7.7); Neutrophil % 78.3 % (47-70); Platelet Count 222 K/mm3 (150-450); RBC Distribution Width CV 13.2 % (11.6-14.6); RBC Distribution Width SD 39.4 fl (35.1-43.9); Red Blood Count 4.02 M/mm3 (4.6-6.2); White Blood Count 7.6 K/mm3 (4.4-11.0)
[2021-05-23 08:12] LABS: Anion Gap 10 (5-15); BUN 14 mg/dL (7-18); BUN/Creat Ratio 18.5 RATIO (10-20); Calcium,Total 9.1 mg/dL (8.5-10.1); Chloride 103 mmol/L (98-107); Creatinine, Serum 0.76 mg/dL (0.70-1.30); EST Glomerular Filtration Rate 114 mL/min (>60); Est Glom Filt Rate - Afr Amer 138 mL/min (>60); Estimated Creatinine Clearance 111.11 ml/min; Glucose 356 mg/dL (74-106); Magnesium 1.8 mg/dL (1.6-2.6); Phosphorus 1.8 mg/dL (2.5-4.9); Potassium 3.7 mmol/L (3.5-5.1); Sodium Level 137 mmol/L (136-145)
[2021-05-23] MEDS: Insulin Lispro 100 UNIT/ML INSULN.PEN SC ×4 (08:45→21:34)
[2021-05-23] MEDS: Insulin Lispro 100 UNIT/ML INSULN.PEN 10 UNIT SC ×3 (08:45→15:09)
[2021-05-23] MEDS: Enoxaparin 30 MG/0.3 ML Syringe SC (08:46)
--- NOTE | 2021-05-23 10:48 | PN.CC_ITS ---
Assessment & Plan Assessment/Plan (1) Diabetic ketoacidosis: QUALIFIERS: Diabetes mellitus type: type 2 Diabetes mellitus complication detail: without coma Qualified Code(s): E11.10 - Type 2 diabetes mellitus with ketoacidosis without coma (2) Pneumonia due to COVID-19 virus: (3) CKD (chronic kidney disease): QUALIFIERS: Chronic kidney disease stage: unspecified stage Qualified Code(s): N18.9 - Chronic kidney disease, unspecified PLAN: RECOMMENDATIONS: 1. Avoid further fluid boluses 2. Titrate basal insulin as necessary 3. Diabetic training 4. Walking oximetry prior to discharge 5. Hemodynamically stable on room air. Will sign off from a critical care/pulmonary perspective IMPRESSIONS: 1. Acute DKA in the setting of poorly controlled diabetes mellitus Patient was treated with prednisone recently secondary to COVID-19 diagnosis. However, hemoglobin A1c is elevated at 12.3 indicating poorly controlled diabetes for more than just this acute burst. Will transition patient to subcutaneous insulin. Patient will likely require diabetic training. Patient did receive fluid boluses associated with DKA, but would hold on further boluses as this can worsen his COVID-19 hypoxia. Patient should likely follow-up with endocrine as an outpatient. Patient with very poor insight into his underlying diabetes. 2. Acute hypoxic respiratory insufficiency secondary to COVID-19 Patient with significant worsening in his oxygen status over the course of this hospitalization. Clinical suspicion the patient was dehydrated leading to good saturations on presentation. Patient has received fluid resuscitation secondary to problem #1. Patient is doing well on room air. Okay to continue with Decadron to complete 10 days. Likely not necessary to follow-up in pulmonary unless patient has residual symptoms or require supplemental oxygen. 3. Acute kidney injury Renal function has normalized with aggressive fluid resuscitation. No indication for renal replacement therapy. 4. Hypertension/metabolic encephalopathy Complicates care, management, recovery and prognosis. Unclear if encephalopathy secondary to DKA or potential hypoxia. Recommend delirium protocol. Okay to reinitiate baseline antihypertensive medications. Subjective Subjective Patient did well overnight. Patient feels that he is moving around well on room air. Patient does have a little bit of a cough, but does not feel he is limited in moving around the room. Objective Data Objective Data Vital Signs: Vital Signs Temp Pulse Resp BP Pulse Ox 37.8 C H 97 16 136/80 H 97 05/23/21 08:39 05/23/21 08:39 05/23/21 08:39 05/23/21 08:39 05/23/21 08:39 Oxygen Delivery Method Room Air Weight: 78.7 kg Body Mass Index (BMI) 26.3 Intake & Output: Intake and Output for Last 24 Hours 05/21/21 05/22/21 05/23/21 23:59 23:59 23:59 Intake Total 1030.78 / 1030.78 3607.51 / 4057.51 450 / 450 Output Total 625 / 625 800 / 800 Balance 405.78 / 405.78 2807.51 / 3257.51 450 / 450 Lab / Micro Data Result Diagrams: 05/23/21 07:26 05/23/21 07:26 Labs: Laboratory Results - last 24 hr 05/22/21 09:20: POC Glucose 263 H 05/22/21 10:57: POC Glucose 325 H 05/22/21 16:23: POC Glucose 303 H 05/22/21 22:13: POC Glucose 257 H 05/23/21 07:26: WBC 7.6, RBC 4.02 L, Hgb 11.2 L, Hct 32.9 L, MCV 81.8, MCH 27.9, MCHC 34.0, RDW Std Deviation 39.4, RDW Coeff of Josue 13.2, Plt Count 222, MPV 10.1, Immature Gran % (Auto) 2.200 H, Neut % (Auto) 78.3 H, Lymph % (Auto) 9.9 L , [place] % (Auto) 8.9, Eos % (Auto) 0.4, Baso % (Auto) 0.3, Absolute Neuts (auto) 5.9, Absolute Lymphs (auto) 0.75 L, Nucleated RBC % 0 05/23/21 07:26: Sodium 137, Potassium 3.7, Chloride 103, Carbon Dioxide 24.0, Anion Gap 10, BUN 14, Creatinine 0.76, Estim Creat Clear Calc 111.11, Est GFR (MDRD) Af Amer 138, Est GFR (MDRD) Non-Af 114, BUN/Creatinine Ratio 18.5, Glucose 356 H, Calcium 9.1, Phosphorus 1.8 L, Magnesium 1.8 Micro: Microbiology 05/21/21 17:40 Nasal Secretion SARS-CoV-2 Antigen (Rapid) - Final SARS-CoV-2 (COVID 19) Physical Exam Const alert and no apparent distress General Appearance: cooperative; Negative for ill appearing HEENT normocephalic, head/scalp atraumatic and moist oral mucous membranes Eyes PERRL and EOMs intact bilaterally Neck full ROM and no lymphadenopathy Chest inspection of chest normal Resp normal respiratory effort and no use of accessory muscles Effort and Inspection: able to speak in complete sentences Auscultation: clear to auscultation bilaterally; Negative for rales, rhonchi or wheezes Percussion: Negative for dullness Cardio regular rate, regular rhythm, S1 normal heart sound, S2 normal heart sound, no murmurs, no rub and no gallops GI normal to inspection, nondistended, normoactive bowel sounds no CVA tenderness Extremity no clubbing, cyanosis or edema Skin no rashes or lesions noted Neuro oriented x3, CN's II-XII intact bilaterally, moves all extremities and no focal motor deficits Psych cooperative and affect normal Charges/Coding Visit Charges Inpatient E&M: 01576 Subs Hosp L2
--- NOTE | 2021-05-23 11:32 | CT_ITS ---
STUDY: CT BRAIN WITHOUT CONTRAST REASON FOR EXAM: Male, 55 years old. Confusion RADIATION DOSAGE (If Supplied By Facility): CTDIvol = ( 44.99 ) mGy, DLP = ( 812.98 ) mGycm TECHNIQUE: Transaxial CT imaging of the brain was performed without administration of intravenous contrast material. Individualized dose optimization techniques were used for this CT. COMPARISON: No relevant priors. FINDINGS: Normal soft tissue structures. Normal calvarium. Normal size ventricles and extra-axial spaces for the patient''s age. Normal white matter tracts of the cerebral hemispheres. Normal basal ganglia and thalami. Normal brainstem. Normal cerebellum. There is no intracranial hemorrhage. There are no findings of an acute ischemic infarction. Partial opacification of the maxillary sinuses bilaterally. Partial opacification of the ethmoid sinuses bilaterally. CT/Brain/Head without Contrast IMPRESSION: Sinusitis. Electronically Signed: Jose David Valdez MD at 12:01 EDT , Service support ,
--- NOTE | 2021-05-23 12:52 | CASEMGMT ---
ROBSON BARRETT assessment: Initial transition planning/care coordination assessment. Assessment completed with pt's d/t intermittent confusion for pt. RN NENA introduced self and role at [facility], pt's voices understanding and consents to assessment. Pt is currently on room air. Pt's states no concerns with getting resources once home. states they have 20yo and 16yo children living in home. Pt is not vaccinated for COVID. Care providers, pharmacy, and demographics verified. Presentation: Pt c/o dry mouth, SOB, COVID + last week Admitting dx: COVID, DKA PCP: [facility] Specialists: Pt states no specialists. Preferred Pharmacy: [facility]/Dina Machado Insurance: [employer] Prescription Benefit: [employer] Living Will/HPOA: Pt does not have LW/HPOA and declines AD info. LNOK: [place], Living Arrangements: Pt states lives with /kids in split level home and states no concerns at home. Pt is independent with ADL's. Transportation: Pt states drives self and states no transportation concerns. DME/HHC: states no current DME but would like script for glucometer. Pt will need insulin teaching and will learn as well. Pt states no hx of HHC or SNF. states no concerns with pt going home at time of discharge. Pt works geographic information scientist. Pt does not smoke cigarettes or drink ETOH. states no further concerns/needs. CM to follow for any further discharge planning/needs. Advised pt/ to ask for CM if any further questions/concerns/needs arise, voices understanding. Pt Goal: Home Plan: Home [place] ROBSON BARRETT
[2021-05-23] MEDS: NYSTATIN 500,000 UNIT/5 ML UDC 500000 UNIT PO ×3 (12:59→21:33)
[2021-05-23 13:15] LABS: Bedside Glucose 289 mg/dL (70-110)
[2021-05-23 15:21] LABS: Bedside Glucose 279 mg/dL (70-110)
--- NOTE | 2021-05-23 16:16 | PN.HOSP_ITS ---
Subjective Subjective Obtain a CT scan secondary to his continued encephalopathy despite knowing where he is and who he is. Still not requiring any oxygen Objective Data Objective Data Vital Signs: Vital Signs Temp Pulse Resp BP Pulse Ox 99.5 F H 115 H 16 123/68 H 95 05/23/21 15:11 05/23/21 15:15 05/23/21 15:11 05/23/21 15:11 05/23/21 15:11 Oxygen Delivery Method Room Air Weight: 173 lb 8.061 oz Body Mass Index (BMI) 26.3 Intake & Output: Intake and Output for Last 24 Hours 05/22/21 05/23/21 05/24/21 03:59 03:59 03:59 Intake Total 2421.74 / 2421.74 2666.55 / 2666.55 Output Total 625 / 625 800 / 800 Balance 1796.74 / 1796.74 1866.55 / 1866.55 Lab / Micro Data Result Diagrams: 05/23/21 07:26 05/23/21 07:26 Labs: Laboratory Results - last 24 hr 05/22/21 16:23: POC Glucose 303 H 05/22/21 22:13: POC Glucose 257 H 05/23/21 07:26: WBC 7.6, RBC 4.02 L, Hgb 11.2 L, Hct 32.9 L, MCV 81.8, MCH 27.9, MCHC 34.0, RDW Std Deviation 39.4, RDW Coeff of Josue 13.2, Plt Count 222, MPV 10.1, Immature Gran % (Auto) 2.200 H, Neut % (Auto) 78.3 H, Lymph % (Auto) 9.9 L , [place] % (Auto) 8.9, Eos % (Auto) 0.4, Baso % (Auto) 0.3, Absolute Neuts (auto) 5.9, Absolute Lymphs (auto) 0.75 L, Nucleated RBC % 0 05/23/21 07:26: Sodium 137, Potassium 3.7, Chloride 103, Carbon Dioxide 24.0, Anion Gap 10, BUN 14, Creatinine 0.76, Estim Creat Clear Calc 111.11, Est GFR (MDRD) Af Amer 138, Est GFR (MDRD) Non-Af 114, BUN/Creatinine Ratio 18.5, Glucose 356 H, Calcium 9.1, Phosphorus 1.8 L, Magnesium 1.8 05/23/21 12:59: POC Glucose 289 H 05/23/21 15:07: POC Glucose 279 H Micro: Microbiology 05/21/21 17:40 Nasal Secretion SARS-CoV-2 Antigen (Rapid) - Final SARS-CoV-2 (COVID 19) Radiography Diagnostic Testing: Radiology Impression Brain CT 05/23/21 11:32 IMPRESSION: Sinusitis. Electronically Signed: Jose David Valdez MD at 12:01 EDT , Service support , Physical Exam Const alert, oriented x3 and no apparent distress General Appearance: cooperative Orientation / Consciousness: confused HEENT normocephalic and moist oral mucous membranes Eyes PERRL, EOMs intact bilaterally and conjunctivae normal Neck supple and no JVD Resp normal respiratory effort, no retractions, no use of accessory muscles and clear to auscultation bilaterally Auscultation: Negative for crackles, rales, rhonchi or wheezes Cardio regular rate, regular rhythm, S1 normal heart sound, S2 normal heart sound and no murmurs GI soft to palpation, non-tender and non-distended; Negative for hepatosplenomegaly Extremity no clubbing, cyanosis or edema Skin no rashes or lesions noted Neuro no focal motor deficits and no sensory deficits noted Psych affect normal Appearance: appropriate Assessment & Plan Assessment/Plan (1) Diabetic ketoacidosis: QUALIFIERS: Diabetes mellitus type: type 2 Diabetes mellitus complication detail: without coma Qualified Code(s): E11.10 - Type 2 diabetes mellitus with ketoacidosis without coma (2) Pneumonia due to COVID-19 virus: (3) Leucocytosis: QUALIFIERS: Leukocytosis type: unspecified Qualified Code(s): D72.829 - Elevated white blood cell count, unspecified (4) Hyponatremia: (5) Hyperkalemia: (6) CKD (chronic kidney disease): QUALIFIERS: Chronic kidney disease stage: unspecified stage Qualified Code(s): N18.9 - Chronic kidney disease, unspecified (7) Lactic acidosis: PLAN: 1. DKA in DM2 with hyperkalemia/NOREEN/metabolic encephalopathy -DKA has resolved with appropriate fluid resuscitation as well as an insulin drip -We will place him on subcu insulin and monitor and make adjustments as necessary -Appreciate pulmonology assistance -A1c was elevated to 12.3 -Renal function is back to normal with resuscitation -We will obtain a CT scan just to rule out a stroke since according to his who is also hospitalized, he has been acting confused for a little over a week now 2. COVID-19 pneumonia -Not requiring oxygen though his oxygen sats did decrease with appropriate resuscitation because of his DKA -We will continue to hold off on Decadron as well as remdesivir especially in the setting of his hyperglycemia 3. HTN -Blood pressure stable, will hold his home blood pressure medications -May restart lisinopril once creatinine remains normal in the morning DVT: Lovenox Charges/Coding Visit Charges Inpatient E&M: 59694 Subs Hosp L2
[2021-05-23] MEDS: Pravastatin 20 MG Tablet PO (21:33)
[2021-05-23 21:46] LABS: Bedside Glucose 276 mg/dL (70-110)
[2021-05-24] VITALS (9 sets, daily range): BP systolic 96–132; BP diastolic 56–67; PULSE 79–106; RESP 14–18; TEMP 36.7–37.6; O2SAT 95–99
[2021-05-24 06:50] LABS: Absolute Lymphocyte Count 1.03 X10^3/uL (0.83-4.51); Absolute Neutrophil Count 6.7 X10^3/uL (2.0-7.7); Basophil# 0.02 X10^3/uL; Basophil% 0.2 % (0-1); Eosinophil# 0.09 X10^3/uL; Hematocrit 31.1 % (40-54); Hemoglobin 10.6 g/dL (13.0-16.5); Lymphocyte # 1.03 X10^3/ul (0.83-4.51); Lymphocyte % 11.6 % (19-41); Mean Corp Hgb Conc 34.1 g/dL (32-36); Mean Corpuscular Volume 82.3 fL (80-94); Mean Platelet Vol. 9.6 fl (6.2-12.0); Monocyte# 0.86 X10^3/uL; Monocyte% 9.7 % (0-10); NRBC Flagged by Analyzer 0 % (0-5); Neutrophil # 6.67 X10^3/uL (2.7-7.7); Platelet Count 194 K/mm3 (150-450); RBC Distribution Width CV 13.2 % (11.6-14.6); Red Blood Count 3.78 M/mm3 (4.6-6.2); White Blood Count 8.9 K/mm3 (4.4-11.0)
[2021-05-24 07:16] LABS: Anion Gap 8 (5-15); BUN 11 mg/dL (7-18); BUN/Creat Ratio 16.3 RATIO (10-20); Calcium,Total 8.7 mg/dL (8.5-10.1); Chloride 103 mmol/L (98-107); Creatinine, Serum 0.67 mg/dL (0.70-1.30); EST Glomerular Filtration Rate 130 mL/min (>60); Est Glom Filt Rate - Afr Amer 157 mL/min (>60); Estimated Creatinine Clearance 126.04 ml/min; Glucose 264 mg/dL (74-106); Potassium 3.8 mmol/L (3.5-5.1); Sodium Level 137 mmol/L (136-145)
[2021-05-24 07:16] LABS: Bedside Glucose 224 mg/dL (70-110)
[2021-05-24] MEDS: Enoxaparin 30 MG/0.3 ML Syringe SC (09:00)
[2021-05-24] MEDS: NYSTATIN 500,000 UNIT/5 ML UDC 500000 UNIT PO ×4 (09:00→21:51)
[2021-05-24] MEDS: Lisinopril 10 MG Tablet PO (09:00)
[2021-05-24] MEDS: Insulin Lispro 100 UNIT/ML INSULN.PEN SC ×4 (09:01→21:53)
[2021-05-24] MEDS: Insulin Lispro 100 UNIT/ML INSULN.PEN 10 UNIT SC ×2 (09:03→12:53)
[2021-05-24 09:21] LABS: Bedside Glucose 253 mg/dL (70-110)
[2021-05-24 13:05] LABS: Bedside Glucose 352 mg/dL (70-110)
--- NOTE | 2021-05-24 15:00 | PN.HOSP_ITS ---
Subjective Subjective Feels much better, seems much more alert and with it today. MRI yesterday was negative for stroke Objective Data Objective Data Vital Signs: Vital Signs Temp Pulse Resp BP Pulse Ox 98.4 F 79 14 116/67 97 05/24/21 08:56 05/24/21 08:56 05/24/21 08:56 05/24/21 08:56 05/24/21 08:56 Oxygen Delivery Method Room Air Weight: 163 lb 5.8 oz Body Mass Index (BMI) 26.3 Intake & Output: Intake and Output for Last 24 Hours 05/23/21 05/24/21 05/25/21 03:59 03:59 03:59 Intake Total 2666.55 / 2666.55 257 / 257 220 / 220 Output Total 800 / 800 Balance 1866.55 / 1866.55 257 / 257 220 / 220 Lab / Micro Data Result Diagrams: 05/24/21 06:42 05/24/21 06:42 Labs: Laboratory Results - last 24 hr 05/23/21 15:07: POC Glucose 279 H 05/23/21 21:31: POC Glucose 276 H 05/24/21 06:42: WBC 8.9, RBC 3.78 L, Hgb 10.6 L, Hct 31.1 L, MCV 82.3, MCH 28.0, MCHC 34.1, RDW Std Deviation 40.0, RDW Coeff of Josue 13.2, Plt Count 194, MPV 9.6, Immature Gran % (Auto) 2.500 H, Neut % (Auto) 75.0 H, Lymph % (Auto) 11.6 L , [place] % (Auto) 9.7, Eos % (Auto) 1.0, Baso % (Auto) 0.2, Absolute Neuts (auto) 6.7, Absolute Lymphs (auto) 1.03, Nucleated RBC % 0 05/24/21 06:42: Sodium 137, Potassium 3.8, Chloride 103, Carbon Dioxide 26.0, Anion Gap 8, BUN 11, Creatinine 0.67 L, Estim Creat Clear Calc 126.04, Est GFR (MDRD) Af Amer 157, Est GFR (MDRD) Non-Af 130, BUN/Creatinine Ratio 16.3, Glucose 264 H, Calcium 8.7 05/24/21 06:52: POC Glucose 224 H 05/24/21 08:55: POC Glucose 253 H 05/24/21 12:52: POC Glucose 352 H Micro: Microbiology 05/21/21 16:19 Blood Culture (Wb) - Anticubital Left Blood Culture - Preliminary No growth in 48 hours. 05/21/21 15:20 Blood Culture (Wb) - Anticubital Left Blood Culture - Preliminary No growth in 48 hours. 05/21/21 17:40 Nasal Secretion SARS-CoV-2 Antigen (Rapid) - Final SARS-CoV-2 (COVID 19) Physical Exam Const alert, oriented x3 and no apparent distress General Appearance: cooperative HEENT normocephalic and moist oral mucous membranes Eyes PERRL, EOMs intact bilaterally and conjunctivae normal Neck supple and no JVD Resp normal respiratory effort, no retractions, no use of accessory muscles and clear to auscultation bilaterally Auscultation: Negative for crackles, rales, rhonchi or wheezes Cardio regular rate, regular rhythm, S1 normal heart sound, S2 normal heart sound and no murmurs GI soft to palpation, non-tender and non-distended; Negative for hepatosplenomegaly Extremity no clubbing, cyanosis or edema Skin no rashes or lesions noted Neuro no focal motor deficits and no sensory deficits noted Psych affect normal Appearance: appropriate Assessment & Plan Assessment/Plan (1) Diabetic ketoacidosis: QUALIFIERS: Diabetes mellitus type: type 2 Diabetes mellitus complication detail: without coma Qualified Code(s): E11.10 - Type 2 diabetes mellitus with ketoacidosis without coma (2) Pneumonia due to COVID-19 virus: (3) Leucocytosis: QUALIFIERS: Leukocytosis type: unspecified Qualified Code(s): D72.829 - Elevated white blood cell count, unspecified (4) Hyponatremia: (5) Hyperkalemia: (6) CKD (chronic kidney disease): QUALIFIERS: Chronic kidney disease stage: unspecified stage Qualified Code(s): N18.9 - Chronic kidney disease, unspecified (7) Lactic acidosis: PLAN: 1. DKA in DM2 with hyperkalemia/NOREEN/metabolic encephalopathy -DKA has resolved with appropriate fluid resuscitation as well as an insulin drip -We will place him on subcu insulin and monitor and make adjustments as necessary -Appreciate pulmonology assistance -A1c was elevated to 12.3 -Renal function is back to normal with resuscitation -We will obtain a CT scan just to rule out a stroke since according to his who is also hospitalized, he has been acting confused for a little over a week now 2. COVID-19 pneumonia -Not requiring oxygen though his oxygen sats did decrease with appropriate resuscitation because of his DKA -We will continue to hold off on Decadron as well as remdesivir especially in the setting of his hyperglycemia 3. HTN -Blood pressure stable, will hold his home blood pressure medications -May restart lisinopril once creatinine remains normal in the morning DVT: Lovenox Charges/Coding Visit Charges Inpatient E&M: 12445 Subs Hosp L2
[2021-05-24 16:30] LABS: Bedside Glucose 346 mg/dL (70-110)
[2021-05-24] MEDS: Insulin Lispro 100 UNIT/ML INSULN.PEN 15 UNIT SC (17:57)
--- NOTE | 2021-05-24 18:09 | NURSING ---
Ecuation provided on insulin pen. Pt self administered insulin with supper tray under the supervision of this RN.
[2021-05-24] MEDS: Pravastatin 20 MG Tablet PO (21:51)
[2021-05-25] VITALS (9 sets, daily range): BP systolic 99–103; BP diastolic 57–61; PULSE 74–93; RESP 18; TEMP 36.3–36.6; O2SAT 93–96
[2021-05-25 00:31] LABS: Bedside Glucose 180 mg/dL (70-110)
[2021-05-25] MEDS: Insulin Lispro 100 UNIT/ML INSULN.PEN SC ×2 (06:46→12:07)
[2021-05-25] MEDS: Insulin Lispro 100 UNIT/ML INSULN.PEN 15 UNIT SC ×3 (06:47→17:12)
[2021-05-25 07:05] LABS: Bedside Glucose 204 mg/dL (70-110)
[2021-05-25 07:45] LABS: Anion Gap 7 (5-15); BUN 16 mg/dL (7-18); BUN/Creat Ratio 21.9 RATIO (10-20); Calcium,Total 9.2 mg/dL (8.5-10.1); Chloride 103 mmol/L (98-107); Creatinine, Serum 0.73 mg/dL (0.70-1.30); EST Glomerular Filtration Rate 119 mL/min (>60); Est Glom Filt Rate - Afr Amer 144 mL/min (>60); Estimated Creatinine Clearance 115.68 ml/min; Glucose 191 mg/dL (74-106); Magnesium 2.1 mg/dL (1.6-2.6); Phosphorus 3.6 mg/dL (2.5-4.9); Sodium Level 136 mmol/L (136-145)
[2021-05-25] MEDS: Enoxaparin 30 MG/0.3 ML Syringe SC (10:24)
[2021-05-25] MEDS: NYSTATIN 500,000 UNIT/5 ML UDC 500000 UNIT PO (10:25)
[2021-05-25] MEDS: Lisinopril 10 MG Tablet PO (10:26)
[2021-05-25 12:41] LABS: Bedside Glucose 224 mg/dL (70-110)
--- NOTE | 2021-05-25 15:27 | DCINST_ITS ---
Discharge Instructions Diet Discharge Diet: Carb Control Diet Activity Discharge Activity: Return to Normal Activity Dressing / Incision Call your doctor if you observe: Fever of 101 or Higher, Shortness of breath, Dizziness, Fainting spells, Swelling in the ankles, Chest pain and Increased palpitations (irregular heartbeat) Follow Up Care Test Results: Test results from this visit will be discussed in further detail at your follow-up appointment, if applicable. Discharge Plan Admission Admit Date/Time: 05/21/21 17:27 Attending Provider: Martin Santana Primary Care Provider: Suresh Ball Consulting Providers: Oliver Dickey ; Alex Bolaños ; Kena Hernandez MEDICAL ASSISTANT OB GYN Discharge Orders/Prescriptions Prescriptions: New insulin lispro [Humalog KwikPen Insulin] 100 unit/mL Insulin Pen 15 unit subcut TIDAC Qty: 15 RF: 0 Lantus Solostar U-100 Insulin 100 unit/mL (3 mL) Insulin Pen 35 unit subcut DAILY Qty: 15 RF: 0 Continued lisinopril 10 mg tablet 10 mg PO DAILY RF: 0 pravastatin 20 mg tablet 20 mg PO DAILY RF: 0 albuterol sulfate 90 mcg/actuation HFA aerosol inhaler 1 - 2 puff INHALATION Q4H PRN (Reason: sob) RF: 0 metformin 500 mg tablet extended release 24 hr 1,000 mg PO BID RF: 0 Discontinued prednisone 10 mg tablet See Taper mg PO DAILY RF: 0 Other Ambulatory Orders: Glucometer (Routine) Location: None Selected Ordered By: Dr. Martin Santana Referrals / Follow Up: Suresh Ball MD [Primary Care Provider] -
--- NOTE | 2021-05-25 15:50 | CASEMGMT ---
Addendum entered by Chari Hammond 05/25/21 16:08: states has pulse ox coming from [employer] tomorrow. Kristina CHANCE CM Original Note: aware pt to be sent home on insulin and with glucometer. is also inpt and teaching done with her and pt regarding insulin administration, etc. Pt also tested for home oxygen and does not qualify at this time. Kristina CHANCE CM
--- NOTE | 2021-05-25 16:00 | DS.PCM_ITS ---
Providers Date of Admission: 05/21/21 Primary Care Physician: Dr. Suresh Ball MD Consultations 05/21/21 18:33 Consult: Supplier Diversity Director / Pulmonary Medicine Routine Consulting Provider: Pulmonary Medicine diana Prescott Reason for Consult: DKA/COVID-19 infection EMERGENT Consult: No MD Notified: Yes Date Notified: 05/21/21 Time Notified: 18:33 Method of Notification: Text Reason For Visit: DKA/COVID-19 INFECTION Diagnosis Discharge Diagnosis (1) Diabetic ketoacidosis: Status: Acute Code(s): E11.10 - Type 2 diabetes mellitus with ketoacidosis without coma Qualifiers: Diabetes mellitus type: type 2 Diabetes mellitus complication detail: without coma Qualified Code(s): E11.10 - Type 2 diabetes mellitus with ketoacidosis without coma (2) Pneumonia due to COVID-19 virus: Status: Acute Code(s): U07.1 - COVID-19; J12.82 - Pneumonia due to coronavirus disease 2019 (3) Leucocytosis: Status: Acute Code(s): D72.829 - Elevated white blood cell count, unspecified Qualifiers: Leukocytosis type: unspecified Qualified Code(s): D72.829 - Elevated white blood cell count, unspecified (4) Hyponatremia: Status: Acute Code(s): E87.1 - Hypo-osmolality and hyponatremia (5) Hyperkalemia: Status: Acute Code(s): E87.5 - Hyperkalemia (6) CKD (chronic kidney disease): Status: Chronic Code(s): N18.9 - Chronic kidney disease, unspecified Qualifiers: Chronic kidney disease stage: unspecified stage Qualified Code(s): N18.9 - Chronic kidney disease, unspecified (7) Lactic acidosis: Status: Acute Code(s): E87.2 - Acidosis Medications at Discharge Home Medications albuterol sulfate 1 - 2 puff INHALATION Q4H PRN 05/21/21 lisinopril 10 mg PO DAILY 05/21/21 metformin 1,000 mg PO BID 05/21/21 pravastatin 20 mg PO DAILY 05/21/21 insulin glargine [Lantus Solostar U-100 Insulin] 35 unit SUBCUT DAILY #15 ml 05/25/21 insulin lispro [Humalog KwikPen Insulin] 15 unit SUBCUT TIDAC #15 ml 05/25/21 Hospital Course Operations None Procedures None Summary of Care Provided Minutes Spent on Discharge: 43 Hospital Course: Per HPI: KARLY CAN, is a 55 M who presents with progressive shortness of breath and weakness. Patient is a poor historian. His is also admitted. His gives a history of having 10 days of symptoms with progressive shortness of breath. There were tested in the [facility] about a week ago and was positive. He had been using [id number] medications with no improvement. Patient complains of having generalized aches. He denies any fever or chills. He has not been able to eat or drink well. Denies any diarrhea. His states that in the last few days he has been confused. He does not answer questions appropriately He is a diabetic on Metformin and lisinopril. Vitals in the ED were stable. He was not requiring oxygen. Hospital Course: 1. DKA and DM2 with hyperkalemia/NOREEN/metabolic encephalopathy/COVID-19 [id number] male presented from home with progressive shortness of breath and weakness, did not require oxygen but he was found to be in DKA on admission therefore was admitted to the ICU with an insulin drip and IV fluids. His metabolic encephalopathy slowly resolved, we did get an MRI just to rule out stroke and the MRI was negative. His metabolic encephalopathy ultimately resolved by the day of discharge. Never required any oxygen therefore was never started on any direct treatments for Covid. Initially admission he did not feel that he had an issue with diabetes was ultimately he requires 35 units of Lantus daily as well as 15 units of Humalog with every meal to control his blood sugars. I do recommend that he follow-up with endocrinology as an outpatient. I discussed with him plan for discharge today he expressed understanding of the risk and benefits of going home and like to go home today. He has been given extensive education on diabetic management and checking his blood sugars and is doing insulin injections. He is also met with nutrition about diabetic diet as well. 2. Hypertension, hyperlipidemia are chronic condition which will complicate his care. His Medicaid can for continued where appropriate Physical Exam Const alert, oriented x3 and no apparent distress General Appearance: cooperative HEENT normocephalic and moist oral mucous membranes Eyes PERRL, EOMs intact bilaterally and conjunctivae normal Neck supple and no JVD Resp normal respiratory effort, no retractions, no use of accessory muscles and clear to auscultation bilaterally Auscultation: Negative for crackles, rales, rhonchi or wheezes Cardio regular rate, regular rhythm, S1 normal heart sound, S2 normal heart sound and no murmurs GI soft to palpation, non-tender and non-distended; Negative for hepatosplenomegaly Extremity no clubbing, cyanosis or edema Skin no rashes or lesions noted Neuro no focal motor deficits and no sensory deficits noted Psych affect normal Appearance: appropriate Weight / BMI Weight Weight: 167 lb 5.294 oz Body Mass Index (BMI) 26.3 ABG / Lab / Microbiology Data Result Diagrams: 05/24/21 06:42 05/25/21 06:04 Laboratory: Laboratory Results - last 24 hr 05/24/21 16:20: POC Glucose 346 H 05/24/21 21:39: POC Glucose 180 H 05/25/21 06:04: Sodium 136, Potassium 4.0, Chloride 103, Carbon Dioxide 26.0, Anion Gap 7, BUN 16, Creatinine 0.73, Estim Creat Clear Calc 115.68, Est GFR (MDRD) Af Amer 144, Est GFR (MDRD) Non-Af 119, BUN/Creatinine Ratio 21.9 H, Glucose 191 H, Calcium 9.2, Phosphorus 3.6, Magnesium 2.1 05/25/21 06:44: POC Glucose 204 H 05/25/21 12:06: POC Glucose 224 H Microbiology: Microbiology 05/21/21 16:19 Blood Culture (Wb) - Anticubital Left Blood Culture - Preliminary No growth in 48 hours. 05/21/21 15:20 Blood Culture (Wb) - Anticubital Left Blood Culture - Preliminary No growth in 48 hours. 05/21/21 17:40 Nasal Secretion SARS-CoV-2 Antigen (Rapid) - Final SARS-CoV-2 (COVID 19) D/C Instructions Discharge Diet: Carb Control Diet Call your doctor if you observe: Fever of 101 or Higher, Shortness of breath, Dizziness, Fainting spells, Swelling in the ankles, Chest pain and Increased palpitations (irregular heartbeat) Meaningful Use Info Meaningful Use Diagnoses (Choose all that apply): None applicable Discharge Plan Admission Admit Date/Time: 05/21/21 17:27 Attending Provider: Martin Santana Primary Care Provider: Suresh Ball Consulting Providers: Oliver Dickey ; Alex Bolaños ; Kena Hernandez [employer] Discharge Orders/Prescriptions Prescriptions: New insulin lispro [Humalog KwikPen Insulin] 100 unit/mL Insulin Pen 15 unit subcut TIDAC Qty: 15 RF: 0 Lantus Solostar U-100 Insulin 100 unit/mL (3 mL) Insulin Pen 35 unit subcut DAILY Qty: 15 RF: 0 Continued lisinopril 10 mg tablet 10 mg PO DAILY RF: 0 pravastatin 20 mg tablet 20 mg PO DAILY RF: 0 albuterol sulfate 90 mcg/actuation HFA aerosol inhaler 1 - 2 puff INHALATION Q4H PRN (Reason: sob) RF: 0 metformin 500 mg tablet extended release 24 hr 1,000 mg PO BID RF: 0 Discontinued prednisone 10 mg tablet See Taper mg PO DAILY RF: 0 Other Ambulatory Orders: Glucometer (Routine) Location: None Selected Ordered By: Dr. Martin Santana Glucometer (Routine) Location: None Selected Ordered By: Dr. Martin Santana Glucometer (Routine) Location: None Selected Ordered By: Dr. Martin Santana Referrals / Follow Up: Suresh Ball MD [Primary Care Provider] - Charges/Coding Visit Charges Inpatient E&M: 56090 Disch Hosp
[2021-05-25 17:36] LABS: Bedside Glucose 137 mg/dL (70-110)
--- NOTE | 2021-05-25 17:42 | NURSING ---
Pt off floor for procedure, VSA late.
--- NOTE | 2021-05-28 15:32 | CASEMGMT ---
HUY DC F/u call DC Date: 05/25/21 DC Diagnosis: DKA/COVID-19 infection DC Disposition: Home Lace/Strata: 07/27 Called patient listed cell phone, no answer- VM stated Mercedes so no VM left. Called Home phone- immediately went to non-working. Called patient [place] cell phone- answered. This bid writer introduced self and role. States her goes by Mercedes as his middle name is Nikolai. States patient is doing better, O2 sat 91-93%. Has been checking his blood sugar and giving insulin. Has a f/u appointment on the . Denies any other concerns, issues, or questions. HUY Glover
== END 2021-05-25 18:50 | disposition home or self-care (01) | DRG 637 ==
LOC: ED 17:38 → ICU 17:42 → PCU 05-22 12:56 → ICU 05-22 13:04
PROVIDERS: Internal Medicine Critical Care Medicine; Nurse Practitioner Family; Admitting Provider Internal Medicine; Emergency Provider Emergency Medicine; PCP Family Medicine; Visit Provider Family Medicine
DX: E11.10 Type 2 diabetes mellitus with ketoacidosis without coma (principal); U07.1 COVID-19; J12.82 Pneumonia due to coronavirus disease 2019; G93.41 Metabolic encephalopathy; E87.1 Hypo-osmolality and hyponatremia; N17.9 Acute kidney failure, unspecified; E78.5 Hyperlipidemia, unspecified; I12.9 Hypertensive chronic kidney disease with stage 1 through stage 4 chronic kidney disease, or unspecified chronic kidney disease; E87.5 Hyperkalemia; N18.9 Chronic kidney disease, unspecified; E11.22 Type 2 diabetes mellitus with diabetic chronic kidney disease; E86.0 Dehydration; Z79.899 Other long term (current) drug therapy; Z79.52 Long term (current) use of systemic steroids; Z79.84 Long term (current) use of oral hypoglycemic drugs
CPT/HCPCS: 36415; 70450; 71045; 80048; 80053; 82009; 82962; 83036; 83605; 83735; 84100; 84484; 85025; 87040; 87426; 93005; 94760; 94762; 97110; 97162; 97166; 97535; 99251; 99285; J7030; J7050; A4216; G0463; J7799

== ENCOUNTER → 2021-06-30 09:34 | Outpatient (CLI) | payer OTHER, SELFPAY ==
[2021-06-30 10:59] LABS: ALB/GLOB Ratio 0.7 RATIO (0.9-2.4); AST(SGOT) 17 U/L (15-37); Alanine Aminotransfer ALT/SGPT 20 U/L (16-61); Alkaline Phosphatase 64 U/L (45-117); Anion Gap 4 (5-15); BUN 12 mg/dL (7-18); BUN/Creat Ratio 14.6 RATIO (10-20); Calcium,Total 9.3 mg/dL (8.5-10.1); Chloride 107 mmol/L (98-107); Cholesterol 164 mg/dL (200); Creatinine, Serum 0.82 mg/dL (0.70-1.30); EST Glomerular Filtration Rate 104 mL/min (>60); Est Glom Filt Rate - Afr Amer 125 mL/min (>60); Globulin 4.4 g/dL (2.2-4.2); Glucose 165 mg/dL (74-106); High Density Lipoprotein 54 mg/dL; Potassium 4.6 mmol/L (3.5-5.1); Protein, Total 7.4 g/dL (6.4-8.2); Sodium Level 140 mmol/L (136-145); Thyroid Stim Hormone (TSH) 1.14 uIU/mL (0.358-3.74); Triglycerides 84 mg/dL; Very Low Density Lipoprotein 17 mg/dL (5-40)
[2021-06-30 11:04] LABS: Microalbumin,Random Urine < 5.0 mg/L (NO RANGE EST.)
== END ==
PROVIDERS: PCP Nurse Practitioner Family; Referring Provider Nurse Practitioner Family; Visit Provider Nurse Practitioner Family
DX: E11.9 Type 2 diabetes mellitus without complications (principal)
CPT/HCPCS: 36415; 80053; 80061; 82043; 82570; 84443

== ENCOUNTER → 2022-08-31 | Outpatient (CLI) | payer OTHER, SELFPAY ==
[2022-08-31 10:50] LABS: Microalbumin,Random Urine 7.4 mg/L (NO RANGE EST.); Microalbumin:Creatinine Ratio 7.3 mg/g CRE (<30 mg/g CRE)
[2022-08-31 11:05] LABS: ALB/GLOB Ratio 0.8 RATIO (0.9-2.4); AST(SGOT) 15 U/L (15-37); Alanine Aminotransfer ALT/SGPT 23 U/L (16-61); Albumin, Serum 3.2 g/dL (3.2-5.0); Alkaline Phosphatase 69 U/L (45-117); Anion Gap 6 (5-15); BUN 18 mg/dL (7-18); Calcium,Total 9.2 mg/dL (8.5-10.1); Chloride 108 mmol/L (98-107); Cholesterol 117 mg/dL (200); EST Glomerular Filtration Rate 93 mL/min (>60); Est Glom Filt Rate - Afr Amer 112 mL/min (>60); Globulin 4.2 g/dL (2.2-4.2); Glucose 93 mg/dL (74-106); High Density Lipoprotein 45 mg/dL; Potassium 4.4 mmol/L (3.5-5.1); Protein, Total 7.4 g/dL (6.4-8.2); Sodium Level 142 mmol/L (136-145); Triglycerides 52 mg/dL; Very Low Density Lipoprotein 10 mg/dL (5-40)
== END | disposition home or self-care (01) ==
LOC: LAB 10:02
PROVIDERS: PCP Nurse Practitioner Family; Referring Provider Internal Medicine Endocrinology, Diabetes & Metabolism; Visit Provider Internal Medicine Endocrinology, Diabetes & Metabolism
DX: E11.9 Type 2 diabetes mellitus without complications (principal); E78.5 Hyperlipidemia, unspecified; I10 Essential (primary) hypertension; E66.9 Obesity, unspecified
CPT/HCPCS: 36415; 80053; 80061; 82043; 82570; 84443

== ENCOUNTER → 2024-04-10 | Outpatient (CLI) | payer OTHER, SELFPAY ==
[2024-04-10 08:21] LABS: Absolute Lymphocyte Count 2.46 X10^3/uL (0.83-4.51); Absolute Neutrophil Count 4.9 X10^3/uL (2.0-7.7); Basophil# 0.07 X10^3/uL; Basophil% 0.8 % (0-1); Eosinophil# 0.47 X10^3/uL; Eosinophils% 5.4 % (0-5); Hematocrit 41.9 % (40-54); Hemoglobin 13.6 g/dL (13.0-16.5); Lymphocyte # 2.46 X10^3/ul (0.83-4.51); Lymphocyte % 28.4 % (19-41); Mean Corp Hgb Conc 32.5 g/dL (32-36); Mean Corpuscular Hgb 27.8 pg (27.0-32.0); Mean Corpuscular Volume 85.5 fL (80-94); Mean Platelet Vol. 9.8 fl (6.2-12.0); Monocyte# 0.79 X10^3/uL; Monocyte% 9.1 % (0-10); NRBC Flagged by Analyzer 0 % (0-5); Neutrophil # 4.86 X10^3/uL (2.7-7.7); Neutrophil % 56.1 % (47-70); Platelet Count 156 K/mm3 (150-450); RBC Distribution Width CV 13.3 % (11.6-14.6); RBC Distribution Width SD 41.6 fl (35.1-43.9); White Blood Count 8.7 K/mm3 (4.4-11.0)
[2024-04-10 08:56] LABS: ALB/GLOB Ratio 0.9 RATIO (0.9-2.4); AST(SGOT) 16 U/L (15-37); Alanine Aminotransfer ALT/SGPT 23 U/L (16-61); Albumin, Serum 3.4 g/dL (3.2-5.0); Alkaline Phosphatase 76 U/L (45-117); Anion Gap 4 (5-15); BUN 22 mg/dL (7-18); BUN/Creat Ratio 22.8 RATIO (10-20); Calcium,Total 9.1 mg/dL (8.5-10.1); Chloride 112 mmol/L (98-107); Cholesterol 141 mg/dL (200); Creatinine, Serum 0.97 mg/dL (0.70-1.30); EST Glomerular Filtration Rate 85 mL/min (>60); Est Glom Filt Rate - Afr Amer 103 mL/min (>60); Globulin 3.9 g/dL (2.2-4.2); Glucose 131 mg/dL (74-106); High Density Lipoprotein 54 mg/dL; Potassium 4.2 mmol/L (3.5-5.1); Protein, Total 7.3 g/dL (6.4-8.2); Sodium Level 143 mmol/L (136-145); Triglycerides 42 mg/dL; Very Low Density Lipoprotein 8 mg/dL (5-40)
[2024-04-10 10:17] LABS: Microalbumin,Random Urine 7.7 mg/L (NO RANGE EST.)
[2024-04-12 08:22] LABS: Vitamin D,25 Hydroxy 44.9 ng/mL
== END | disposition home or self-care (01) ==
LOC: LAB 08:00
PROVIDERS: PCP Internal Medicine; Referring Provider Internal Medicine Endocrinology, Diabetes & Metabolism; Visit Provider Internal Medicine Endocrinology, Diabetes & Metabolism
DX: I10 Essential (primary) hypertension (principal); E11.65 Type 2 diabetes mellitus with hyperglycemia; E55.9 Vitamin D deficiency, unspecified; E78.5 Hyperlipidemia, unspecified
CPT/HCPCS: 36415; 80053; 80061; 82043; 82306; 82570; 84443; 85025

== ENCOUNTER → 2025-05-14 | Outpatient (CLI) | payer OTHER, SELFPAY ==
[2025-05-14 10:28] LABS: Creatinine, Urine (random) 82.00 mg/dL (39.00-259.00); Microalbumin,Random Urine < 12.0 mg/L (<20 mg/L)
[2025-05-14 10:35] LABS: AST(SGOT) 22 U/L (<=37); Alanine Aminotransfer ALT/SGPT 23 U/L (<=46); Albumin, Serum 4.2 g/dL (3.5-5.0); Alkaline Phosphatase 80 U/L (40-129); Anion Gap 10 (5-15); BUN 17 mg/dL (4-19); BUN/Creat Ratio 17.4 RATIO (10-20); Calcium,Total 9.8 mg/dL (7.6-11.0); Carbon Dioxide 24.5 mmol/L (21.0-32.0); Chloride 107 mmol/L (98-108); Cholesterol 142 mg/dL (<=200); Globulin 3.2 g/dL (2.2-4.2); Glucose 119 mg/dL (70-99); Low Density Lipoprotein Calc. 77 mg/dL; Potassium 4.9 mmol/L (3.3-5.1); Triglycerides 58 mg/dL; Very Low Density Lipoprotein 12 mg/dL (5-40); cholesterol:hdl ratio screen 2.64
== END | disposition home or self-care (01) ==
LOC: LAB 08:53
PROVIDERS: PCP Internal Medicine; Referring Provider Internal Medicine Endocrinology, Diabetes & Metabolism; Visit Provider Internal Medicine Endocrinology, Diabetes & Metabolism
DX: E11.65 Type 2 diabetes mellitus with hyperglycemia (principal); E78.5 Hyperlipidemia, unspecified; I10 Essential (primary) hypertension
CPT/HCPCS: 36415; 80053; 80061; 82043; 82570; 84443